=== PATIENT | female | born 1965 | race Asian ===

== ENCOUNTER 2016-08-22 17:04 | Inpatient (IN) | payer OTHER ==
[~2016-08-22] VITALS: Ht 124.5 cm; Wt 37.3 kg
[2016-08-22] VITALS (17 sets, daily range): BP systolic 78–162; BP diastolic 40–141
--- NOTE | ~2016-08-22 | EKG ---
[place] [address] [facility] [place] [address] ELECTROCARDIOGRAM REPORT Name: NATA MANUEL Room #: 243-P ADM IN M.R.#: [id number] Admission: 08/22/16 Attend Phys: Radha Clark MD Discharge: Date of : 65 Report #: [id number] THIS REPORT FOR: //name// [facility] ED Test Date: 2016-08-22 Test Time: 18:30:29 Pat Name: NATA MANUEL Department: Room: [facility] Gender: F Manager French: arcelia : 1965 Requested By: Loretta Sánchez Order Number: [id number] MD: Alfred Cuellar Measurements Intervals Reserve Rate: 94 P: 65 [place]: 144 QRS: 56 QRSD: 82 T: 8 QT: 376 QTc: 471 Interpretive Statements Sinus rhythm No significant abnormality Baseline wander in lead(s) V3 No previous ECG available for comparison Electronically Signed On 08-23-2016 8:00:52 RESEARCH TECHNICIAN by Alfred Cuellar [email or web address] <ELECTRONICALLY SIGNED> By: Alfred Cuellar MD, [facility] 08/23/16 0800 D: 01/1829 29 Alfred Cuellar MD, FACC /EPI
--- NOTE | ~2016-08-22 | HC ---
[facility] [place] [address] CONSULTATION Name: MARNATA Room #: 243-P ADM IN M.R.#: [id number] Admission: 08/22/16 Attend Phys: Suraj Esquivel MD Discharge: Date of : 65 Report #: [id number] THIS REPORT FOR: //name// CC: Suraj Alford [place] REASON FOR CONSULTATION: I was asked to evaluate concerning sepsis. HISTORY OF PRESENT ILLNESS: The patient is a 50-year-old with cerebral palsy and quadriplegia who became lethargic and ultimately unresponsiveness at her senior living. She was placed on a nonrebreather and transported to the Emergency Room. There has been no nausea, vomiting or diarrhea. She usually eats pureed food. She does have a history of epilepsy, gastroparesis and constipation. No report of fever, chills or sweats. PAST MEDICAL HISTORY: Cerebral palsy, epilepsy, mental retardation, constipation, scoliosis and gastroesophageal reflux. ALLERGIES: EGGS and POULTRY. MEDICATIONS: As noted on her MAR including Colace, senna, omeprazole and vitamins. She was given Zosyn and Levaquin in the Emergency Room. Also in the Emergency Room, her blood pressure dropped down in the 70s systolic. She was placed on 2 liters of oxygen per nasal cannula. REVIEW OF SYSTEMS: The patient was unable to give any details. PHYSICAL EXAMINATION: VITAL SIGNS: The patient then became hypothermic with temperature 92 degrees last evening, now normothermic. Pulse 125. Blood pressure 131/71 and MAP of 94. SKIN: Unremarkable. LYMPHATIC: Unremarkable. She had no decubiti. She would moan. She is on 2 liters of oxygen per nasal cannula. LUNGS: Clear. HEART: Regular and tachycardic. ABDOMEN: Soft and nontender, no hepatosplenomegaly or mass. GENITOURINARY: She was incontinent of urine. EXTREMITIES: She had contractures of her upper extremities. She had very small lower extremities and feet. LABORATORY STUDIES: Sodium 146, potassium 4.1, bicarbonate of 21, creatinine 0.6, BUN 4. AST 10, ALT 28, albumin of 2.9 and lactate 3.2, down from 9 on admission. Hemoglobin 13.5, white count 14.8, platelet count 268,000 and 7% bands. Urinalysis few wbc's, many bacteria. On 2-1/2 liters of oxygen, her PaO2 was 115, pCO2 of 42, pH 7.19, lactate 7.2, this was yesterday evening. [address] [address] CONSULTATION Name: NATA MANUEL Room #: 243-P ADM IN M.R.#: [id number] Admission: 08/22/16 Attend Phys: Suraj Esquivel MD Discharge: Date of : 65 Report #: [id number] further ABGs obtained. Blood cultures are pending. Urine culture pending. Influenza antigen nasal swab negative. CT scan of the chest and abdomen, subtle patchy right middle lobe and left lower lobe atelectasis and pneumonitis changes without consolidation, severe scoliosis thoracic spine and cardiomegaly. CT of the abdomen, a large amount of stool within the rectum and fecal impaction. IMPRESSION AND PLAN: A 50-year-old with transient hypotension, change in mental status, source of which is still indeterminate. She does have changes on her CT scan consistent with early pneumonia. Influenza has entered [facility]. We will screen for this and empiric treatment for both influenza and bacterial pneumonia. Disimpact her rectum. Await blood and urine cultures. There was no evidence of ureteral obstruction or swelling to the kidneys. Continue IV fluids. Follow lactate. <ELECTRONICALLY SIGNED> By: Jerel Thomsno MD 08/25/16 0936 [id number] Jerel Thomson MD /nt
[~2016-08-22 17:04] MED LIST: BISAC-EVAC10 MG RC; COLACE 100 MG100 MG PO; DICYCLOMINE HCL10 MG PO; GUAIF-DM-PSE S120 ML PO; LEVAQUIN 500 M500 MG PO; LOPERAMIDE 2 MG2 M1 PO; MINERIN CREME454 GM TP; OMEPRAZOLE20 MG PO; ORADENT 0.1% DEN5 G1 TOP; PRENATAL; SENNA CONCENTR8.6 MG PO
[2016-08-22 17:35] LABS: HEMATOCRIT 40.7 % (37.0-47.0); HEMOGLOBIN 13.3 gm/dL (12.0-15.0); MCH 30.8 pg (26.0-34.0); MCHC 32.6 % (28.0-37.0); MCV 94.4 fL (80.0-100.0); PLATELET COUNT 259 thou/uL (150-400); RBC 4.31 mil/uL (4.20-5.00); RDW 14.4 % (10.5-14.5); WBC 13.7 thou/uL (4.0-11.0)
[2016-08-22 17:37] LABS: URINE BILIRUBIN NEGATIVE (Negative); URINE BLOOD NEGATIVE (Negative); URINE COLOR YELLOW; URINE GLUCOSE-RANDOM* NEGATIVE (Negative); URINE KETONES 2+ (Negative); URINE LEUKOCYTES-REFLEX 1+ (Negative); URINE PROTEIN (DIPSTICK) TRACE (Negative); URINE SPECIFIC GRAVITY 1.025 (1.003-1.035); URINE UROBILINOGEN 0.2 E.U./dl (0.2-1.0)
[2016-08-22 17:40] LABS: MANUAL DIFF YES
[2016-08-22 17:42] LABS: CALCIUM 8.6 mg/dL (8.5-10.1); CREATININE 0.8 mg/dL (0.6-1.3); POTASSIUM 3.6 mmol/L (3.5-5.1)
[2016-08-22 17:44] LABS: ABG SAMPLE TYPE ARTERIAL; BE(vivo) -11.7 mmol/L (-2 to +3); HCO3 15.9 mmol/L (22.0-26.0); O2(CT) 16.6 mL/dL (15.0-23.0); O2Hb 96.6 % (92.0-98.0); PCO2 42.5 mmHg (35.0-45.0); PO2 115.1 mmHg (80.0-100.0); sO2 97.2 % (92.0-98.0); tCO2 17.2 mmol/L (24.0-30.0)
[2016-08-22 17:47] LABS: LACTATE 7.28 mmol/L (0.5-2.0); STICK SITE R.RADIAL; pH 7.191 (7.360-7.450)
[2016-08-22 17:48] LABS: ALBUMIN 3.4 g/dL (3.4-5.0); TOTAL BILIRUBIN 0.1 mg/dL (<0.1-1.0); TOTAL PROTEIN 7.2 g/dL (6.4-8.2)
[2016-08-22 17:54] LABS: CASTS None Seen /LPF (None Seen); SQUAMOUS 0-3 Few /LPF (0-3); URINE RBC None Seen /HPF (0-2); URINE WBC-REFLEX 6-15 Few /HPF (0-5)
[2016-08-22 17:55] LABS: CRYSTALS None Seen /LPF (None Seen)
[2016-08-22 18:01] LABS: ABSOLUTE NEUTROPHILS 12.3 thou/uL (1.4-8.2); TOTAL CELL COUNT 100
[2016-08-22] MEDS ORDERED: VITAMIN D3400 UNIT PO (23:18)
[2016-08-22] MEDS ORDERED: OYSTER SHELL 51 EACH PO (23:21)
[2016-08-22] MEDS ORDERED: ERYTHROMYCIN500 MG PO (23:29)
[2016-08-22] MEDS ORDERED: GAS RELIEF 8080 MG PO (23:33)
[2016-08-22] MEDS ORDERED: TYLENOL325 MG PO (23:35)
[2016-08-23] VITALS (41 sets, daily range): BP systolic 82–167; BP diastolic 49–149
[2016-08-23 01:27] LABS: HEMATOCRIT 42.5 % (37.0-47.0); HEMOGLOBIN 13.5 gm/dL (12.0-15.0); MCH 30.3 pg (26.0-34.0); MCHC 31.8 % (28.0-37.0); MCV 95.3 fL (80.0-100.0); RBC 4.46 mil/uL (4.20-5.00); RDW 14.1 % (10.5-14.5); WBC 14.8 thou/uL (4.0-11.0)
[2016-08-23 01:39] LABS: ALBUMIN 2.9 g/dL (3.4-5.0); APTT 26.1 Seconds (24.5-32.8); CREATININE 0.6 mg/dL (0.6-1.3); FIBRINOGEN 422.1 mg/dL (210-360); INR 1.1; POTASSIUM 4.1 mmol/L (3.5-5.1); PROTIME 11.1 Seconds (9.3-11.4); TOTAL BILIRUBIN 0.2 mg/dL (<0.1-1.0); TOTAL PROTEIN 6.6 g/dL (6.4-8.2)
[2016-08-24] VITALS (28 sets, daily range): BP systolic 101–172; BP diastolic 66–126
[2016-08-25] VITALS (25 sets, daily range): BP systolic 77–171; BP diastolic 57–114
[2016-08-25 04:18] LABS: HEMATOCRIT 37.5 % (37.0-47.0); HEMOGLOBIN 12.4 gm/dL (12.0-15.0); MCH 30.3 pg (26.0-34.0); MCHC 33.1 % (28.0-37.0); MCV 91.7 fL (80.0-100.0); PLATELET COUNT 223 thou/uL (150-400); RBC 4.09 mil/uL (4.20-5.00); RDW 14.3 % (10.5-14.5); WBC 9.3 thou/uL (4.0-11.0)
[2016-08-25 04:25] LABS: MANUAL DIFF YES
[2016-08-25 04:39] LABS: CALCIUM 8.6 mg/dL (8.5-10.1); CREATININE 0.5 mg/dL (0.6-1.3)
[2016-08-25 04:47] LABS: POTASSIUM 2.5 mmol/L (3.5-5.1)
[2016-08-25 05:15] LABS: ABSOLUTE NEUTROPHILS 7.4 thou/uL (1.4-8.2); ATYPICAL LYMPHS 2 %; MYELOCYTES 1 %; TOTAL CELL COUNT 100
[2016-08-25 22:09] LABS: INFLUENZA B Negative (Negative); METAPNEUMOVIRUS Negative (Negative)
[2016-08-26 03:25] VITALS: BP 152/112
[2016-08-26 03:53] LABS: HEMATOCRIT 31.7 % (37.0-47.0); MCH 30.9 pg (26.0-34.0); MCHC 32.9 % (28.0-37.0); MCV 93.9 fL (80.0-100.0); RBC 3.38 mil/uL (4.20-5.00); RDW 14.2 % (10.5-14.5); WBC 5.5 thou/uL (4.0-11.0)
[2016-08-26 03:55] LABS: HEMOGLOBIN 10.4 gm/dL (12.0-15.0)
[2016-08-26 04:37] LABS: CALCIUM 7.7 mg/dL (8.5-10.1); CREATININE 0.4 mg/dL (0.6-1.3); POTASSIUM 3.4 mmol/L (3.5-5.1)
[2016-08-26 08:30] VITALS: BP 154/104
[2016-08-26 20:05] VITALS: BP 147/92
[2016-08-27 04:26] VITALS: BP 155/98
[2016-08-27 07:40] VITALS: BP 129/87
[2016-08-27 18:27] VITALS: BP 160/124
[2016-08-28 08:16] VITALS: BP 150/89
[2016-08-28] MEDS ORDERED: AUGMENTIN400 MG/53 PO (10:18)
== END 2016-08-28 12:06 | DRG 871 ==
LOC: ER 17:04 → ICU 19:47 → EROBS 19:47 → ICU 20:59 → 5S 08-25 22:39
PROVIDERS: Emergency Medicine; Family Medicine; Hospitalist; Nurse Practitioner Acute Care; Specialist
PROC: 05HB33Z Insertion of Infusion Device into Right Basilic Vein, Percutaneous Approach (ICD-10-PCS; principal; 2016-08-23)
PROC: B54MZZA Ultrasonography of Right Upper Extremity Veins, Guidance (ICD-10-PCS; 2016-08-23)
DX: A41.9 Sepsis, unspecified organism (principal); J69.0 Pneumonitis due to inhalation of food and vomit; J96.00 Acute respiratory failure, unspecified whether with hypoxia or hypercapnia; R65.21 Severe sepsis with septic shock; N39.0 Urinary tract infection, site not specified; E87.0 Hyperosmolality and hypernatremia; G80.9 Cerebral palsy, unspecified; K59.09 Other constipation; K21.9 Gastro-esophageal reflux disease without esophagitis; M41.9 Scoliosis, unspecified; I34.0 Nonrheumatic mitral (valve) insufficiency; Z66 Do not resuscitate; E87.6 Hypokalemia; Z79.899 Other long term (current) drug therapy; Z91.012 Allergy to eggs; Z88.8 Allergy status to other drugs, medicaments and biological substances
CPT/HCPCS: 10078; 10785; 27000; 85068